=== PATIENT | female | born 1960 | race Caucasian/White ===

== ENCOUNTER 2019-10-08 16:58 | Outpatient (REF) | payer OTHER, SELFPAY ==
[2019-10-12 23:17] LABS: SARS-CoV-2 RNA Undetected (Undetected); SARS-CoV-2 Specimen Source Nasopharynx
== END 2019-10-08 17:18 ==
LOC: NCHCN 16:58
PROVIDERS: Visit Provider Nurse Practitioner Family
DX: Z20.828 Contact with and (suspected) exposure to other viral communicable diseases (principal)
CPT/HCPCS: U0003

== ENCOUNTER 2020-05-29 15:52 | Emergency (ER) | payer OTHER, SELFPAY ==
[2020-05-29 15:55] VITALS: BP 126/77; PULSE 57; TEMP 36.4; O2SAT 98
--- NOTE | 2020-05-29 16:06 | ED.GENADUL_ITS ---
Discharge Plan Disposition Patient Disposition: HOME Condition: Stable Discharge Details Clinical Impression: Puncture wound Primary Care Provider: [facility] ED Provider: Nicholas Baugh Home Meds and New Rx's Prescriptions: No Action No Known Home Meds RF: 0 Discharge Instructions Instructions: Puncture Wound (ED) Additional Instructions: keep the area clean if spreading redness or yellow/white discharge return to the emergency department Medical Decision Making 60 yo female who states she was due to get a tetanus vaccine with her pcp's office last February but due to covid hasn't had it, comes in with request for tetanus shot as she sustained a puncture wound to the right arm. She states she was working in the yard and the wind blew over a board that had med screws on it and one of the screws hit her right posterior mid arm over the tricep. Denies falls or other injuries. HAs a superficial abrasion to the area about 0.5mm and has no tenderness, no palpable foreign body and full rom of the shoulder and elbow. Given superficial woud and no papable foreign body do not feel xray indicated and no signs of infection. will order tetanus vaccine and return precautions given Differential Diagnosis Differential Diagnosis: puncture wound, abrasion HPI General Mode of arrival: ambulatory . Date/Time Provider Initiated Documentation: 05/29/20 15:56 . Limitations to Documentation: no limitations . Information obtained by: patient . History of Present Illness 60 year old F presents to the emergency department with the chief complaint of right arm puncture wound, described as mild, and it has been constant. No relieving factors improve symptom(s), No exacerbating factors reported . Patient did receive the following treatments prior to arrival, none Related Data Home Medications Medication Instructions Recorded Confirmed Unknown [No Known Home Meds] 05/29/20 05/29/20 Allergies Allergy/AdvReac Type Severity Reaction Status Date / Time iodine Allergy Unverified 05/29/20 16:00 General Stated Complaint: RashLesion HECTOR: 5 Review of Systems All systems reviewed & are unremarkable except as noted in HPI and below Constitutional Constitutional: Denies chills, Denies fever(s) and Denies weakness Cardiovascular Cardiovascular: Denies chest pain and Denies dyspnea Respiratory Respiratory: Denies cough and Denies dyspnea Gastrointestinal Gastrointestinal: Denies abdominal pain, Denies nausea and Denies vomiting Musculoskeletal Musculoskeletal: Denies joint swelling Neurologic Neurologic: Denies weakness PFSH Social History Smoking/Tobacco Use Status: Never Smoking risk assessment performed?: Yes Alcohol Intake: current Alcohol Intake frequency: 0-2 drinks per day Alcohol type: beer Drug use: Never Substance use type: does not use Do you feel safe at home: Yes Do you feel safe in your relationship?: Yes Exam Const General: no acute distress Orientation: alert HENMT Head: normal to inspection Ears: external ears normal General nose exam: external nose normal Mouth: moist mucous membranes Eyes General: appearance normal, both eyes and all related structures Neck Neck: normal visual inspection Resp Effort & Inspection: normal respiratory effort and able to speak in complete sentences Cardio Rate: regular rate Skin General skin exam: no rashes or lesions noted Neuro General: patient alert and patient oriented x3 Extrem General: full ROM Psych Mental Status: mental status grossly normal Course Vital Signs Vital signs: Vital Signs Temperature 36.4 C L 05/29/20 15:55 Pulse 57 L 05/29/20 15:55 Blood Pressure 126/77 05/29/20 15:55 Pulse Oximetry 98 05/29/20 15:55 Temperature 36.4 C L 05/29/20 15:55 Temperature Source Temporal Artery Scan 05/29/20 15:55 Pulse 57 L 05/29/20 15:55 Respiratory Effort Non-Labored 05/29/20 15:57 Blood Pressure 126/77 05/29/20 15:55 Blood Pressure Position Sitting 05/29/20 15:55 Pulse Oximetry 98 05/29/20 15:55 Oxygen Delivery Method Room Air 05/29/20 15:55 Oxygen Flow Rate 0 05/29/20 15:55
[2020-05-29] MEDS: Tetanus & Diphtheria Tox,ADULT 0.5 ML VIAL IM (16:16)
== END 2020-05-29 16:16 | disposition home or self-care (01) ==
PROVIDERS: Emergency Provider Emergency Medicine
DX: S41.131A Puncture wound without foreign body of right upper arm, initial encounter (principal); W45.0XXA Nail entering through skin, initial encounter
CPT/HCPCS: 90471; 99284; 99282

== ENCOUNTER 2020-10-13 10:08 | Outpatient (REF) | payer OTHER, SELFPAY ==
--- NOTE | 2020-10-13 09:30 | PAPFT_PTH ---
PATIENT: Maria Teresa Tobin LOC: [facility] U#:[id number] AGE/SX: 60/F ROOM: RE10/13/[address]: Merline Mas : 1960 BED: DIS: 10/13/2020 SPEC #: [id number] RECD: 10/13/20 13:12 STATUS: [facility] REQ #: [id number] ROSIBEL: 10/13/20 09:[address]: Merline Mas DEPT: [facility] Cytology RECD BY: Citlaly Hodges ENTERED: 10/13/20 13:12 SP TYPE: PAPFT OTHR DR: Mary Live Tissues: 1 - CX/ENDOCX FOR PAP SMEARS Procedures: PAP THIN PREP/[facility] Screening HPV DNA PROBE Comments: [id number]
== END 2020-10-13 10:09 | disposition home or self-care (01) ==
LOC: NCHCN 10:08
PROVIDERS: Visit Provider Nurse Practitioner
DX: Z00.00 Encounter for general adult medical examination without abnormal findings (principal); Z11.51 Encounter for screening for human papillomavirus (HPV); Z12.4 Encounter for screening for malignant neoplasm of cervix
CPT/HCPCS: 88142; 87624

== ENCOUNTER 2020-11-16 01:54 | Outpatient (CLI) | payer OTHER, SELFPAY ==
--- NOTE | 2020-11-16 | DI.MAMMO_ITS ---
Exam(s) MG MAMMO SCREENING EXAM: MG MAMMO SCREENING CLINICAL HISTORY: SCREENING, FAMILY H/O BREAST CA,Z80.3 TECHNIQUE: Mammograms were interpreted according to the usual protocol including computer analysis w ith CAD system, tomosynthesis and C-view imaging. COMPARISON: MG MAMMOGRAPHY DIGITAL SCREENING BILATERAL from 06/16/2009 MG MAMMOGRAPHY DIGITAL SCREENING BILATERAL from 06/16/2009 MG MAMMOGRAPHY DIGITAL SCREENING BILATERAL from 06/16/2012 MG MAMMOGRAPHY DIGITAL SCREENING BILATERAL from 06/16/2012 MG MAMMOGRAPHY DIGITAL SCREENING BILATERAL from 06/26/2013 MG MAMMOGRAPHY SCREENING BILATERAL W/ TOMOSYNTHESIS from 10/27/2014 MG MAMMOGRAPHY SCREENING BILATERAL W/ TOMOSYNTHESIS from 12/01/2016 MG MAMMOGRAPHY DIGITAL SCREENING BILATERAL from 01/24/2018 MG MAMMOGRAPHY DIGITAL SCREENING BILATERAL from 01/24/2018 FINDINGS: The breasts are composed of scattered fibroglandular densities, Breast Density category B. No suspicious masses or suspicious microcalcifications are seen. No skin thickening or abnormal axillary lymph nodes are seen. There has been no significant change from prior exams. IMPRESSION: BI-RADS Category 1, Negative mammogram Yearly screening mammography is recommended. Breast Density - Category B, scattered fibroglandular densities. A negative radiographic report should not delay biopsy if a dominant or clinically suspicious mass is present. Up to ten percent of cancers are not identified on mammography. A negative report may reinforce clinical impression. Adenosis and dense breasts may obscure an underlying neoplasm. False positive reports average 6 to 10%. Patient will receive a letter notifying them of these results.
== END 2020-11-16 02:14 ==
PROVIDERS: PCP Nurse Practitioner; Visit Provider Nurse Practitioner
DX: Z12.31 Encounter for screening mammogram for malignant neoplasm of breast (principal); Z80.3 Family history of malignant neoplasm of breast
CPT/HCPCS: 77063; 77067

== ENCOUNTER 2021-12-28 15:18 | Outpatient (REF) | payer MEDICAID, SELFPAY ==
[2021-12-28 16:33] LABS: ALT 19 U/L (14-59); AST 19 U/L (15-37); Alkaline Phosphatase 56 U/L (46-116); Anion Gap 9.5 mmol/L (3-11); BUN 11 mg/dL (7-18); CO2 25.5 mmol/L (21.0-32.0); CREATININE 0.5 mg/dL (0.55-1.02); Calcium 9.2 mg/dL (8.5-10.1); Calculated LDL 77 mg/dL (<100); Chloride 105 mmol/L (98-107); Cholesterol 165 mg/dL (<200); Estimated GFR 107.98 (mL/min/1.73m2); Glucose 89 mg/dL (74-106); HDL Cholesterol 78 mg/dL (40-60); Sodium 140 mmol/L (136-145); Total Protein 6.8 g/dL (6.4-8.2); Triglyceride 51 mg/dL (<150)
== END 2021-12-28 15:19 | disposition home or self-care (01) ==
LOC: NCHCN 15:18
PROVIDERS: PCP Nurse Practitioner; Visit Provider Nurse Practitioner Family
DX: Z13.220 Encounter for screening for lipoid disorders (principal)
CPT/HCPCS: 80053; 80061

== ENCOUNTER → 2022-11-23 00:26 | Outpatient (CLI) | payer BC, SELFPAY ==
--- NOTE | 2022-11-23 | DI.MAMMO_ITS ---
Exam(s) MAMMO SCREENING EXAM: MAMMO SCREENING CLINICAL HISTORY: SCREENING, Z12.39 TECHNIQUE: Mammograms were interpreted according to the usual protocol including computer analysis w [employer] CAD system, tomosynthesis and C-view imaging. COMPARISON: 2013 through 2020 FINDINGS: The breasts are composed of scattered fibroglandular densities, Breast Density category B. No suspicious masses or suspicious microcalcifications are seen. No skin thickening or abnormal axillary lymph nodes are seen. There has been no significant change from prior exams. IMPRESSION: BI-RADS Category 1, Negative mammogram Yearly screening mammography is recommended. Breast Density - Category B, scattered fibroglandular densities. A negative radiographic report should not delay biopsy if a dominant or clinically suspicious mass is present. Up to ten percent of cancers are not identified on mammography. A negative report may reinforce clinical impression. Adenosis and dense breasts may obscure an underlying neoplasm. False positive reports average 6 to 10%. Patient will receive a letter notifying them of these results.
== END ==
PROVIDERS: PCP Nurse Practitioner; Visit Provider Nurse Practitioner Family
DX: Z12.31 Encounter for screening mammogram for malignant neoplasm of breast (principal)
CPT/HCPCS: 77063; 77067

== ENCOUNTER → 2024-12-25 03:22 | Outpatient (CLI) | payer MEDICAID, SELFPAY ==
--- NOTE | 2024-12-25 | DI.MAMMO_ITS ---
Exam(s) MAMMO SCREENING EXAM: MAMMO SCREENING CLINICAL HISTORY: SCREENING, Z12.31 TECHNIQUE: Bilateral full field digital CC and MLO mammographic images were obtained with 3D tomosynthesis and utilizing computer aided detection (CAD). COMPARISON: Comparison is made with prior examinations. FINDINGS: Masses/Architectural Distortion: No suspicious masses or areas of architectural distortion are present. Microcalcifications: No suspicious pleomorphic-type are seen. Skin Thickening/Nipple Retraction: None. IMPRESSION: 1. No significant interval change with no specific features of malignancy noted. 2. Unless there is more urgent need, screening mammography is recommended, as per [place] [employer] guidelines. BI-RADS Category 1 - Negative Breast Density - Category B - There are scattered areas of fibroglandular density. Breast density Category C or D implies that the patient has dense breast tissue. Dense breast tissue can make it harder to find cancer on a mammogram. Dense breast tissue is also associated with an increased risk of breast cancer. This information about the result of the mammogram report was provided to the patient to raise their awareness. Use this report when you speak with the patient about their risks for breast cancer, which includes their family history. At that time, you may recommend additional screening tests (Ultrasound or MRI) as these tests may add significant information. A negative radiographic report should not delay biopsy if a dominant or clinically suspicious mass is present. Up to ten percent of cancers are not identified on mammography. A negative report may reinforce clinical impression. Adenosis and dense breasts may obscure an underlying neoplasm. False positive reports average 6 to 10%. Patient will receive a letter notifying them of these results.
== END ==
LOC: DI 03:22
PROVIDERS: PCP Family Medicine; Visit Provider Family Medicine
DX: Z12.31 Encounter for screening mammogram for malignant neoplasm of breast (principal)
CPT/HCPCS: 77063; 77067